=== PATIENT | female | born 1980 | race Caucasian/White ===

== ENCOUNTER 2018-10-04 09:56 | Emergency (ER) | payer OTHER ==
[~2018-10-04] VITALS: Ht 170.2 cm; Wt 136.1 kg
[~2018-10-04 09:56] MED LIST: ANTIVERT25 MG PO; FLEXERIL PO; IBUPROFEN 600600 M1 PO; IBUPROFEN 800800 MG PO; LEVOTHYROXINE0.2 M1 PO; NAPROSYN500 MG PO; NORCO 5-325 TA1 EACH PO; PRENATAL PO; ROBAXIN 750 MG750 MG PO; ULTRAM 50MG TAB50 MG PO; ZOFRAN ODT4 MG PO
[2018-10-04 10:03] VITALS: BP 129/83
[2018-10-04] MEDS ORDERED: HYDROCODONE-AP1 EAC6 PO (10:46)
== END 2018-10-04 10:54 | disposition home or self-care (01) ==
LOC: M.ERS 09:56
DX: S93.492A Sprain of other ligament of left ankle, initial encounter (principal); M25.511 Pain in right shoulder; J45.909 Unspecified asthma, uncomplicated; E03.9 Hypothyroidism, unspecified; E28.2 Polycystic ovarian syndrome; Z88.5 Allergy status to narcotic agent; W10.8XXA Fall (on) (from) other stairs and steps, initial encounter; Y93.89 Activity, other specified; Y92.89 Other specified places as the place of occurrence of the external cause; Y99.8 Other external cause status